=== PATIENT | male | born 1960 | race Hispanic/Latino ===

== ENCOUNTER 2020-10-30 18:21 | Emergency (ER) | payer SELFPAY ==
[2020-10-30] MEDS ORDERED: Lidocaine 2% PF 5 ML VIAL ONE ×2 (18:37→18:41)
[2020-10-30] MEDS ORDERED: cefTRIAXone\\ROCEPHIN 1 GM VIAL ONE (18:39)
[2020-10-30] MEDS ORDERED: Lidocaine 1% PF 5 ML VIAL ONE (18:40)
[2020-10-30] MEDS ORDERED: Sulfameth/Trimethoprim DS 800-160mg TAB ONE (18:40)
== END 2020-10-30 19:08 | disposition home or self-care (01) ==
LOC: BURERS 18:21
DX: L03.011 Cellulitis of right finger (principal)
CPT/HCPCS: 10060; 96372; J0696; J2001

== ENCOUNTER 2024-03-08 12:03 | Emergency (ER) | payer SELFPAY ==
[2024-03-08] MEDS ORDERED: Glucagon 1 MG/ML KIT ONE (12:27)
== END 2024-03-08 14:04 | disposition home or self-care (01) ==
LOC: BURERS 12:03
DX: R13.10 Dysphagia, unspecified (principal); T18.128A Food in esophagus causing other injury, initial encounter; I10 Essential (primary) hypertension
CPT/HCPCS: 96374; J1611